=== PATIENT | male | born 1960 | race Caucasian/White ===

== ENCOUNTER 2017-05-25 09:12 | Emergency (ER) | payer OTHER ==
[~2017-05-25] VITALS: Ht 167.6 cm; Wt 52.2 kg
[2017-05-25 09:20] VITALS: Ht 167.6 cm; Wt 52.2 kg
[2017-05-25 10:32] VITALS: BP 129/83
== END 2017-05-25 10:32 | disposition home or self-care (01) ==
LOC: ED 09:12
DX: S00.83XA Contusion of other part of head, initial encounter (principal); D17.0 Benign lipomatous neoplasm of skin and subcutaneous tissue of head, face and neck; W06.XXXA Fall from bed, initial encounter; Y93.89 Activity, other specified; Y92.89 Other specified places as the place of occurrence of the external cause; Y99.8 Other external cause status